=== PATIENT | female | born 1990 | race American Indian/Alaskan Native ===

== ENCOUNTER 2020-11-11 22:26 | Inpatient (IN) | payer BC ==
[2020-11-11] MEDS: Lactated Ringers 1,000 ML IV SCH (23:00)
[2020-11-11] MEDS ORDERED: Acetaminophen 325 MG Tab PO PRN (23:23)
[2020-11-11] MEDS ORDERED: Sodium Chloride 0.9% 10 ML Syringe FLUSH PRN (23:23)
[2020-11-11] MEDS ORDERED: Lidocaine 1% 30 ML SDV INJECT PRN (23:23)
[2020-11-11] MEDS ORDERED: Misoprostol 400 MCG (4 X 100 MCG TAB) RECTAL PRN (23:23)
[2020-11-11] MEDS ORDERED: Carboprost Tromethamine 250 MCG/1 ML Amp IM PRN (23:23)
[2020-11-11] MEDS ORDERED: Lactated Ringers 1,000 ML IV ONE (23:23)
[2020-11-11] MEDS ORDERED: Ondansetron 4 MG/2 ML SDV IVPUSH PRN (23:23)
[2020-11-11] MEDS ORDERED: Methylergonovine 0.2 MG/1 ML Amp IM PRN (23:23)
[2020-11-11] MEDS ORDERED: Tranexamic Acid 1,000 MG in Sodium Chloride 0.9% 100 ML IV PRN (23:23)
[2020-11-11] MEDS ORDERED: fentaNYL 100 MCG/2 ML SDV ONE (23:29)
[2020-11-11] MEDS ORDERED: EPINEPHrine 1 MG/1 ML Amp ONE (23:29)
[2020-11-11] MEDS ORDERED: Oxytocin/Normal Saline 30 UNIT/500 ML BAG IV SCH (23:30)
--- NOTE | 2020-11-12 00:14 | PCM.PRNOTE ---
- Free Text/Narrative Note: Requested to provide analgesia to full term patient in severe pain. Upon entering the room, patient is sitting on edge of bed complaining of severe abdominal/pelvic pain and discomfort. Procedure was discussed with patient including adverse outcomes and expectations. Pt consented to analgesia, SAB/IT. Pt placed into a proper sitting position. Landmarks for SAB/IT were identified and marked. Hands were washed and appropriate PPE was applied. Back was prepped with betadine x3. A sterile, transparent, fenestrated drape was applied. Excess betadine was removed. Using 3 mL of a 1% lidocaine solution, a skin wheel was placed at the L2/L3 interspace. A 24 ga (4 inch) Pencan spinal needle was inserted until positive for CSF. Negative for heme or paresthesias. Injected fentanyl 25 mcg, sufentanil 25 mcg, and 7.5 mg of a 0.75% bupivacaine solution with an epi wash. Pt was placed left lateral tilt position for approximately 20 minutes. There were zero complications or adverse outcomes. Will continue to monitor. Procedure Date & Time: 11/11/20 [id number]
[2020-11-12] MEDS: Lactated Ringers 1,000 ML IV SCH (01:39)
[2020-11-12] MEDS ORDERED: Benzocaine/Menthol 20%-0.5% Spray 56 GM Canister TOP PRN (07:13)
[2020-11-12] MEDS ORDERED: Simethicone 80 MG Tab.Chew PO PRN (07:13)
[2020-11-12] MEDS ORDERED: Carboprost Tromethamine 250 MCG/1 ML Amp IM PRN (07:13)
[2020-11-12] MEDS ORDERED: Tranexamic Acid 1,000 MG in Sodium Chloride 0.9% 100 ML IV PRN (07:13)
[2020-11-12] MEDS ORDERED: Misoprostol 400 MCG (4 X 100 MCG TAB) RECTAL PRN (07:13)
[2020-11-12] MEDS ORDERED: Sodium Chloride 0.9% 10 ML Syringe FLUSH PRN (07:13)
[2020-11-12] MEDS ORDERED: Oxytocin 10 Units/1 ML SDV IM PRN (07:13)
[2020-11-12] MEDS ORDERED: Zolpidem 5 MG Tab PO PRN (07:13)
[2020-11-12] MEDS ORDERED: Acetaminophen 325 MG Tab PO PRN (07:13)
[2020-11-12] MEDS: Ibuprofen 800 MG Tab PO PRN ×2 (13:08→20:55)
[2020-11-12] MEDS: Prenatal Multivitamin with Calcium/Folic Acid/Iron Tab PO SCH (13:15)
--- NOTE | 2020-11-12 14:11 | DEL ---
DATE: 11/12/2020 PREDELIVERY DIAGNOSIS: This is an intrauterine at term who presented in active labor. PROCEDURE: Normal spontaneous vaginal delivery. FINDINGS: There was a viable infant, score 8 and 7. Baby did weigh 3900 g. Placenta was delivered intact. There was a small vaginal laceration repaired with 2 [id number] sutures. PROCEDURE IN DETAIL: The patient did present in active labor. Group B Strep negative. She was given intrathecal. She ruptured her own membranes. When she got to complete, the patient began pushing. Infant's head was delivered without any difficulties. Shoulder was delivered. The infant was delivered and placed on the maternal chest. The scores were 8 and 7. Baby weighed 3900 g. The cord was cut and clamped. The cord blood was collected. The placenta was then delivered intact with some gentle traction and some uterine massage. The uterus then began to firm up with the third stage Pitocin. Estimated blood loss was roughly 300 mL. There was a small midline vaginal laceration that was repaired with 2 [id number] 3-0 Vicryl. At the end of the procedure, mom and baby were both doing well. [facility] /[id number]
[2020-11-12] MEDS ORDERED: fentaNYL 100 MCG/2 ML SDV ITHECAL ONE (14:59)
[2020-11-12] MEDS ORDERED: EPINEPHrine 1 MG/ML SDV ONE (14:59)
[2020-11-12] MEDS: Docusate Sodium 100 MG Cap PO PRN (20:56)
[2020-11-13] MEDS: Ibuprofen 800 MG Tab PO PRN ×2 (05:36→16:54)
--- NOTE | 2020-11-13 07:19 | HP ---
HISTORY OF PRESENT ILLNESS: The patient is a 29-year-old, G2, P0-0-1-0 at 40 weeks gestational age today, who comes in with worsening contractions. No vaginal bleeding. No loss of fluid. Good movement. She has had excellent care. OB HISTORY: The patient has had 1 miscarriage. [employer] HISTORY: No abnormal Paps. No STDs. PAST MEDICAL HISTORY: Negative. PAST SURGICAL HISTORY: Her tonsils and adenoids removed. SOCIAL HISTORY: The patient does not smoke. ALLERGIES: The patient is allergic to penicillin. LABS: The patient is O positive. Antibody negative. Rubella nonimmune. Syphilis negative. Hepatitis B negative. HIV negative. Gonorrhea and chlamydia negative. Hepatitis C negative. 1-hour is 85. GBS was negative. Her screening ultrasound was normal and consistent with dates. The patient's hemoglobin is 14. PHYSICAL EXAMINATION: Vital Signs: The patient's blood pressure 122/74, heart rate 80, temperature 97.7. Genitourinary: External monitoring is reactive, reassuring. She is virgie every 2 to 3 minutes on the tocometer. When she initially arrived, the labor nurse did check her, she was 5 cm. Shortly thereafter, I came over to Labor and Delivery, she was already 7 cm, 100% effaced, bulging bag of fluid, cephalic. ASSESSMENT AND PLAN: A 29-year-old G2, P0-0-1-0 at 40 weeks gestational age in active labor. We will give this patient intrathecal and I will plan for a vaginal delivery. Again, group B Strep negative. [facility] /[id number]
[2020-11-13] MEDS: Prenatal Multivitamin with Calcium/Folic Acid/Iron Tab PO SCH (09:00)
--- NOTE | 2020-11-13 12:05 | PN ---
DATE: 11/13/2020 SUBJECTIVE: The patient is day #1 from a vaginal delivery. Mom and baby are both doing well. Lochia is minimal. PHYSICAL EXAMINATION: VITAL SIGNS: The patient is afebrile, heart rate 70 to 85, blood pressure 104 to 114 systolic over 56 to 69 diastolic, respiratory rate 16, O2 sat 98% to 100%. ABDOMEN: The patient's fundus is firm below the umbilicus. EXTREMITIES: Have no tenderness, no edema. LABORATORY DATA: Blood type is O positive. She is rubella nonimmune. Pre- delivery hemoglobin was 14. CBC this morning shows white count 15.9, hemoglobin 11.9, platelets 269. She is coronavirus disease negative. ASSESSMENT AND PLAN: day #1, status post vaginal delivery. Mom and baby are both doing well. We will continue cares and likely discharge tomorrow. [facility] /[id number]
[2020-11-14] MEDS: Docusate Sodium 100 MG Cap PO PRN ×2 (00:03→06:13)
[2020-11-14] MEDS: Ibuprofen 800 MG Tab PO PRN (06:13)
[2020-11-14] MEDS: Prenatal Multivitamin with Calcium/Folic Acid/Iron Tab PO SCH ×2 (08:07)
[2020-11-14] MEDS ORDERED: Measles, Mumps & Rubella Vaccine 0.5 ML SDV SUBCUT ONE (10:13)
--- NOTE | 2020-11-15 16:07 | PCM.DCSUM1 ---
Discharge Summary - Hospital Course Free Text/Narrative:: 29-year-old, now , PPD#2 s/p at 40w1d Diagnosis: Stroke: No - Discharge Data Discharge Date: 11/14/20 Discharge Disposition: Home, Self-Care 01 Condition: Good - Referral to Home Health Primary Care Physician: Louann Brizuela MD - Patient Summary/Data Operative Procedure(s) Performed: None Complications: None Consults: None Labs Pending at D/C: None Hospital Course: Please see subjective section - Patient Instructions Diet: Usual Diet as Tolerated Activity: As Tolerated, No Lifting Over 20 Pounds Driving: May Drive Today Showering/Bathing: May Shower Notify Provider of: Fever, Increased Pain, Swelling and Redness, Drainage, Nausea and/or Vomiting - Discharge Plan *PRESCRIPTION DRUG MONITORING PROGRAM REVIEWED*: Not Applicable *COPY OF PRESCRIPTION DRUG MONITORING REPORT IN PATIENT EDUIN: Not Applicable Home Medications: Home Meds Acetaminophen [Tylenol Extra Strength] 500 mg PO ONETIME 11/11/20 [History] Iron,Carbonyl/Ascorbic Acid [Iron 100-Vitamin C Tablet] 1 tab PO DAILY 11/11/20 [History] Pnv No.95/Ferrous Fum/Folic AC [ Caplet] 1 tab PO DAILY 11/11/20 [History] diphenhydrAMINE HCL [Unisom] 50 mg PO ONETIME 11/11/20 [History] Acetaminophen [Tylenol] 650 mg PO Q6H PRN tablet 11/14/20 [Rx] Docusate Sodium [Colace] 100 mg PO BID PRN cap 11/14/20 [Rx] Ibuprofen [Motrin] 800 mg PO Q8H PRN tablet 11/14/20 [Rx] Patient Handouts: Baby Blues, Care of a Perineal Tear, Care After Vaginal Delivery Referrals: Gina Briuzela MD [Primary Care Provider] - (please call osman mendoza a 6 week care appointment) - Discharge Summary/Plan Comment DC Time >30 min.: No Discharge Summary/Plan Comment: Discharge home today with follow up in 6-8 weeks for routine care. Reasons to return to clinic sooner or present to the ED were discussed, and all questions were answered. - General Info Date of Service: 11/14/20 Subjective Update: Patient is doing well. Voiding without difficulty. No fever or chills. Lochia is decreasing. Minimal abdominal pain. No lower extremity edema. is going well. No concerns per patient or per nursing staff. Functional Status: Reports: Pain Controlled, Tolerating Diet, Ambulating, Urinating. Denies: New Symptoms - Review of Systems General: Reports: No Symptoms HEENT: Reports: No Symptoms Pulmonary: Reports: No Symptoms Cardiovascular: Reports: No Symptoms Gastrointestinal: Reports: No Symptoms Genitourinary: Reports: No Symptoms Musculoskeletal: Reports: No Symptoms Skin: Reports: No Symptoms - Patient Data Vitals - Most Recent: Last Vital Signs Temp 36.6 C 11/14/20 08:00 Pulse 76 11/14/20 08:00 Resp 18 11/14/20 08:00 BP 107/70 11/14/20 08:00 Pulse Ox 99 11/14/20 08:00 Weight - Most Recent: 88.451 kg Med Orders - Current: Current Medications Discontinued Medications Acetaminophen (Acetaminophen 325 Mg Tab) 650 mg PO Q4H PRN PRN Reason: Pain (Mild 1-3) and fever Acetaminophen (Acetaminophen 325 Mg Tab) 650 mg PO Q6H PRN PRN Reason: Pain/Fever Benzocaine/Menthol (Benzocaine/Menthol 20%-0.5% [place] 56 Gm Canister) 0 gm TOP Q4H PRN PRN Reason: Perineal comfort measures Last Admin: 11/12/20 13:07 Dose: 1 applic Documented by: Carboprost Tromethamine (Carboprost Tromethamine 250 Mcg/1 Ml Amp) 250 mcg IM ASDIRECTED PRN PRN Reason: HEMORRHAGE Carboprost Tromethamine (Carboprost Tromethamine 250 Mcg/1 Ml Amp) 250 mcg IM ASDIRECTED PRN PRN Reason: Excessive vaginal bleeding Docusate Sodium (Docusate Sodium 100 Mg Cap) 100 mg PO BID PRN PRN Reason: Constipation Last Admin: 11/14/20 06:13 Dose: 100 mg Documented by: Epinephrine HCl (Epinephrine 1 Mg/1 Ml Amp) Confirm Administered Dose 1 mg .ROUTE .STK-MED ONE Stop: 11/11/20 23:30 Last Admin: 11/12/20 01:39 Dose: Not Given Documented by: Fentanyl (Fentanyl 100 Mcg/2 Ml Sdv) Confirm Administered Dose 100 mcg .ROUTE .STK-MED ONE Stop: 11/11/20 23:30 Last Admin: 11/12/20 07:32 Dose: Not Given Documented by: Tranexamic Acid 1,000 mg/ (Sodium Chloride) 110 mls @ 660 mls/hr IV ONETIME PRN PRN Reason: Bleeding Oxytocin/Sodium Chloride (Pitocin In Ns 30 Unit/500 Ml) 30 unit in 500 mls @ 2 mls/hr IV TITRATE LUIS ARMANDO; Protocol Last Titration: 11/12/20 09:00 Dose: 50 munits/min, 50 mls/hr Documented by: Lactated Ringer's (Ringers, Lactated) 1,000 mls @ 999 mls/hr IV BOLUS ONE Stop: 11/12/20 00:23 Last Admin: 11/11/20 23:51 Dose: 999 mls/hr Documented by: Lactated Ringer's (Ringers, Lactated) 1,000 mls @ 125 mls/hr IV ASDIRECTED LUIS ARMANDO Last Admin: 11/12/20 01:39 Dose: 125 mls/hr Documented by: Tranexamic Acid 1,000 mg/ (Sodium Chloride) 110 mls @ 660 mls/hr IV ONETIME PRN PRN Reason: Bleeding Ibuprofen (Ibuprofen 800 Mg Tab) 800 mg PO Q8H PRN PRN Reason: Pain Last Admin: 11/14/20 06:13 Dose: 800 mg Documented by: Lidocaine HCl (Lidocaine 1% 30 Ml Sdv) 30 ml INJECT ASDIRECTED PRN PRN Reason: Perineal Repair Measles/Mumps/Rubella Vaccine Live (Measles, Mumps & Rubella Vaccine 0.5 Ml Sdv) 0.5 ml SUBCUT .ONCE ONE Stop: 11/14/20 10:14 Last Admin: 11/14/20 12:03 Dose: 0.5 ml Documented by: Methylergonovine Maleate (Methylergonovine 0.2 Mg/1 Ml Amp) 0.2 mg IM ASDIRECTED PRN PRN Reason: Hemorrhage Misoprostol (Misoprostol 400 Mcg (4 X 100 Mcg Tab)) 800 mcg RECTAL ASDIRECTED PRN PRN Reason: Hemorrhage Misoprostol (Misoprostol 400 Mcg (4 X 100 Mcg Tab)) 800 mcg RECTAL ONETIME PRN PRN Reason: Hemorrhage Ondansetron HCl (Ondansetron 4 Mg/2 Ml Sdv) 4 mg IVPUSH Q4H PRN PRN Reason: Nausea/Vomiting Oxytocin (Oxytocin 10 Units/1 Ml Sdv) 10 unit IM ONETIME PRN PRN Reason: Bleeding Prenat Multivit/[place]/Iron/Folic Ac ( Multivitamin With Calcium/Folic Acid/Iron Tab) 1 each PO DAILY LUIS ARMANDO Last Admin: 11/14/20 08:07 Dose: 1 each Documented by: Simethicone (Simethicone 80 Mg Tab.Chew) 80 mg PO Q4H PRN PRN Reason: Gas Sodium Chloride (Sodium Chloride 0.9% 10 Ml Syringe) 10 ml FLUSH ASDIRECTED PRN PRN Reason: Keep Vein Open Sodium Chloride (Sodium Chloride 0.9% 10 Ml Syringe) 10 ml FLUSH ASDIRECTED PRN PRN Reason: Keep Vein Open Sufentanil Citrate (Sufentanil 50 Mcg/1 Ml Amp) Confirm Administered Dose 50 mcg .ROUTE .[place]-MED ONE Stop: 11/11/20 23:30 Last Admin: 11/12/20 07:33 Dose: Not Given Documented by: Zolpidem Tartrate (Zolpidem 5 Mg Tab) 5 mg PO BEDTIME PRN PRN Reason: Insomnia - Exam General: Reports: Alert, Oriented Lungs: Reports: Clear to Auscultation, Normal Respiratory Effort Cardiovascular: Reports: Regular Rate, Regular Rhythm, No Murmurs GI/Abdominal Exam: Soft, Non-Tender Extremities: Normal Inspection, No Pedal Edema Skin: Reports: Warm, Dry, Intact
== END 2020-11-14 15:00 | disposition home or self-care (01) | DRG 560 ==
LOC: DL.OBCHECK 22:26 → DL.OB 23:29 → OBSVTOIN 11-12 06:58
PROVIDERS: ADMIT Obstetrics & Gynecology; ATTEND Obstetrics & Gynecology
PROC: 10E0XZZ Delivery of Products of Conception, External Approach (ICD-10-PCS; principal; 2020-11-12)
PROC: 0UQGXZZ Repair Vagina, External Approach (ICD-10-PCS; 2020-11-12)
PROC: 3E0R3BZ Introduction of Anesthetic Agent into Spinal Canal, Percutaneous Approach (ICD-10-PCS; 2020-11-12)
PROC: 00HU33Z Insertion of Infusion Device into Spinal Canal, Percutaneous Approach (ICD-10-PCS; 2020-11-12)
DX: O70.0 First degree perineal laceration during delivery (principal); Z37.0 Single live birth; Z3A.40 40 weeks gestation of pregnancy; Z20.822 Contact with and (suspected) exposure to COVID-19; Z23 Encounter for immunization
CPT/HCPCS: 36415; 59409; 85027; 90471; 90707; A9270-GY; J0171; J2590; J3010; J7120; U0002